=== PATIENT | female | born 1940 | race Caucasian/White ===

== ENCOUNTER 2021-12-02 09:52 | Outpatient (CLI) | payer MEDICARE, SELFPAY ==
--- OUTSIDE RECORDS SUMMARY | 2021-10-28 10:07 | XMS_ITS | Continuity of Care Document ---
:1940 Author Care Team Providers Name Role Phone SORAYA Caceres Attending Physician SORAYA Caceres Primary Care Physician Health Concerns Concerns See notes for health concerns that were reviewed. Allergies, Adverse Reactions, Alerts Allergen Type Severity Reaction Last Verified Status Updated Cortisone Allergy Moderate skin turns October 25, Yes Active red and hot 2021 Alcohol Allergy Severe THROAT October 25, Yes Active SWELLING 2021 Ramirez Allergy Moderate hives October 25, Yes Active 2021 Ragweed pollen Allergy Mild congestion, October 25, Yes Ac tive sneezing 2021 seasonal Allergy Mild sneezing September 14, No Active allergies 2020 Social History Smoking Status Status Start Date End Date Date of Observat ion Never smoked tobacco October 25, 2021 3:20pm (finding) Observation Status Observation Response Date of Response Non-smoker April 02, 2018 9:00am April 02, 2018 9:00am Additional Data Assigned Sex Female Problems Active Problems Medical Problem Onset Date Status Hyperthyroidism February 08, 2010 Resolved Hypothyroidism February 08, 2010 Active DDD (degenerative disc disease) March 04, 2012 Active Osteoarthritis March 04, 2012 Active Heart murmur Active Seasonal allergies Active Previous back surgery February 08, 2010 Resolved History of arthroscopic surgery of February 08, 2010 Resol monet shoulder H/O arthroscopic knee surgery February 08, 2010 Resolved History of left cataract Active extraction Medications Medication Status Dose Units Route Directions Qty Days Start End Ins tructions Date Date Calcium Active 500 + OR dose is Ca Carbonate-Vit 500mg/ vitamin coe D D (Calcium 500mg/Vitam in 500+D) 500 K 40mg Mg/200 Unit TAB Glucosamine-C Active 1 TAB OR Daily hondroitin-Na Cho (Glucosamine Chondroitin &) /Msm TAB Ibuprofen Active 200-4 MG PO Every 6 100 00 Hours as needed Levothyroxine Active 150 MCG PO Daily Sodium (Synthroid) 150 Mcg TAB Loratadine & Active 1 TAB PO Daily 100 100 October Pseudoephedri , ne 2021 (Claritin-D 8:59am 24 Hour) 1 Tab TAB Multiple Active 1 EA PO Daily Vitamin (Multi-Vitami n) TAB Amoxicillin Disconti 875 MG PO Twice A Day July nued , 2010 1:22pm 2:38pm Amoxicillin Disconti 875 MG PO Twice A Day Augustob e nued , r 2009 10:45am 7:27am Amoxicillin Disconti 1000 MG PO Twice A Day 13 November nued 2008 9:29am Amoxicillin & Disconti 875 MG PO Twice A Day 01 September Sep tem Pot nued , yvrose Clavulanate 2011, (Augmentin) 10:05am 2011 875 Mg/125 Mg 12:49p TAB m Amoxicillin & Disconti 1 TABLET PO Twice A Day 01 August Ju ly Pot nued , , Clavulanate 2010 2010 (Augmentin) 2:38pm 10:57a 875 Mg/125 Mg m TAB Amoxicillin & Disconti 1 TABLET PO Twice A Day September ptem Pot nued , yvrose Clavulanate 2006, (Augmentin) 11:35am 2006 875 Mg/125 Mg 10:02a TAB m Calcium Disconti 1 TABLET PO Three Times Novemb c hewable Carbonate-Vit nued A Day er coe D , (Calcium 2015 (500)/Vitamin 1:20pm D (200)) 1 Tablet TAB Calcium/Vitam Disconti 3 EA PO Daily Octobe in D nued r 2009 7:27am Celecoxib Disconti 200 MG PO Daily July (Celebrex) nued , r 200 Mg CAP 2007, 9:12am 2007 8:33am Celecoxib Disconti 200 MG PO Daily July (Celebrex) nued y , , 200 Mg CAP 2007 2007 2:37pm 9:02am Ciprofloxacin Disconti 1 TABLET PO Twice A Day Hcl nued er r , 2014 2:11pm 8:54am Clarithromyci Disconti 500 MG PO Twice A Day November ust n (Biaxin) nued , 500 Mg TAB 2008 2008 4:42pm 7:52am Diphtheria/Te Disconti 0.5 ML IM Once December tanus/Acell nued , , Pertussis 2013 2013 (Adacel) 0.5 3:15pm 3:20pm Ml INJ Epinephrine Disconti 0.3 MG IM As Needed 1 Decembe Octob e Hcl (Epipen) nued r , r 0.3 Mg INJ 2008, 11:27am 2014 8:54am Fluconazole Disconti 150 MG PO Once October nued , yvrose 2006, 1:13pm 2006 10:02a m Fluconazole Disconti 150 MG PO Once October nued , yvrose 2006, 11:27am 2006 10:02a m Glucosamine-C Disconti 1 CAP PO Three Times Mar hondroitin nued A Day er (Glucosamine , Chondroitin) 2014 1 Cap CAP 1:20pm Glucosamine-C Disconti 2 CAP PO November hondroitin nued , (Joint 2009 Support) 1 10:11a Cap CAP m Influenza Disconti 0.5 ML IM Once Februaryobe Virus Vacc nued , r 7th, Triv Types 2008 2008 A&B (Fluarix) 2:00pm 4:43pm 0.5 Ml INJ Influenza Disconti 0.5 ML IM Once Februaryobe Virus Vacc nued , r Triv Types 2007, A&B (Fluarix) 9:21am 2007 0.5 Ml INJ 10:41a m Influenza Disconti 0.5 ML IM Once 1 Novembe Novemb Virus Vaccine nued r th, er (Fluzone 2017, High-Dose (65 9:10am 2018 Yrs And 9:13am Older) 2017-) 1 Inj INJ Influenza Disconti 0.5 ML IM Once 1 Novembe Novemb Virus Vaccine nued r 2nd, er (Fluzone Pf 2010 06, [id number] 8:16am 2010 (0.5 Ml)) 0.5 9:56am Ml INJ Influenza Disconti 0.5 ML IM Once 1 Novembe Novemb Virus Vaccine nued r 7th, er Split 2016 7th, (Fluzone 8:37am 2016 High-Dose Pf 8:39am 2016 0.5 Ml) 1 Inj INJ Influenza Disconti 0.5 ML IM Once 1 Novembe Novemb Virus Vaccine nued r 16th, er Split 2015 16, (Fluzone 10:25am 2015 High-Dose (65 10:39a Yrs And m Older) 2015-) 1 Inj INJ Influenza Disconti 0.5 ML IM Once 1 Februaryobe Virus Vaccine nued th, r Split 2014, (Fluzone 9:10am 2014 High-Dose (65 10:05a Yrs And m Older) 2014-) 1 Inj INJ Influenza Disconti 0.5 ML IM Once 1 be Novemb Virus Vaccine nued r 3rd, er Split 2013 07, (Fluzone 2:00pm 2013 High-Dose (65 2:30pm Yrs And Older) 2013-) 1 Inj INJ Influenza Disconti 0.5 ML IM Once 1 be Novemb Virus Vaccine nued r th, er Split 2013 03, (Fluzone (3 8:05am 2012 Years And 12:01p Older) m [id number]) 1 Ml INJ Ketoconazole Disconti 2 % EX Twice A Day (Ketoconazole nued er ry Cream) 2 % , , CRE 2006 2007 10:11am 1:55pm Levofloxacin Disconti 750 MG PO Daily October (Levaquin) nued , yvrose 750 Mg TAB 2006, 11:27am 2006 10:02a m Loratadine Disconti 10 MG PO As Needed November (Claritin) 10 nued 8th, Mg TAB 2010 10:57a m Loratadine & Disconti 1 TAB PO Daily 100 100 September Pseudoephedri nued , , ne 2020 2021 (Claritin-D 9:45am 8:58am 24 Hour) 1 Tab TAB Loratadine & Disconti 1 TAB PO Daily July Pseudoephedri nued , , ne 2019 2020 (Claritin-D 9:35am 9:44am 24 Hour) 1 Tab TAB Loratadine & Disconti 1 TAB PO Daily October Pseudoephedri nued , , ne 2014 2019 (Claritin-D 11:09am 9:34am 24 Hour) 1 Tab TAB Loratadine & Disconti 1 TAB PO Daily 90 October Pseudoephedri nued , , ne 2014 2014 (Claritin-D 10:42am 11:09a 24 Hour) 1 m Tab TAB Loratadine & Disconti 1 TAB PO Daily October Pseudoephedri nued , 2014 (Claritin-D 10:42a 24 Hour) 1 m Tab TAB Loratadine & Disconti 1 TAB PO Octobe Pseudoephedri nued r , ne 2009 (Claritin-D 7:27am 24 Hour) 1 Tab TAB Pneumococcal Disconti 0.5 ML IM Once Polyvalent nued r , er Vaccine 2015, (Prevnar 13) 10:25am 2015 0.5 Ml INJ 10:39a m Pneumococcal Disconti 0.5 ML IM Once 04 February Octobe Polyvalent nued , r , Vaccine 2009 2009 (Pneumovax-23 7:59am 8:20am Multidose Vial) 23 Mcg/0.5 Ml INJ Valacyclovir Disconti 1 TAB PO Three Times December il Hcl (Valtrex) nued A Day , 1,000 Mg TAB 2008 2009 8:47am 10:23a m Immunizations Immunization Event Date Not Given Dose Practice Specialist Lot Vac cine Reason Number Number Informatio n Statement (VIS) Deta il COVID-19 Pfizer June 07 PFIZER-BIO [id number] 2020 COVID-19 Pfizer July 17, PFIZER-[employer] [id number] 2020 Influenza February 04 Sanofi Pasteur [id number] 2007 Inc Influenza February 10, glaxo [id number] 2008 Influenza March 09 Sanofi Pasteur [id number] 2010 Influenza March 10 Sanofi [id number] 2012 Influenza March 11 Sanofi Pasteur [id number] 2013 Influenza February 6 Sanofi [id number] 2014 Influenza March 7 SANOFI [id number] 2015 Influenza March 8 SANOFI [id number] 2016 Influenza March 9 SANOFI [id number] 2017 Prevnar Adult March 07 MERCK [id number] 2015 Pneumovax Adult February 08, 1 merck [id number] 2010 Tetanus/Diptheri August 24, 1 a 2004 Tdap December 24, 1 SANOFI [id number] (adolescent/adul 2014 t) Procedures Procedure Date Performed Status Future Lab Physical October 17, 2021 completed ASSAY THYROID STIM HORMONE October 11, 2021 completed ASSAY OF FREE THYROXINE October 11, 2021 completed Relevant Diagnostic Tests and/or Laboratory Data Laboratory Results Test Date/Time Result Interpretation Reference Result Comment Performing Site Range Random October 25, 97 60-115 [facility] Glucose [address] [facility] 9:12am [facility] [address] Blood Urea October 25, 17 7-30 [facility] Nitrogen [address] [facility] 9:12am [facility] [address] Creatinine October 25, 0.9 0.5-1.5 [facility] [address] [facility] 9:12am [facility] [address] Estimated October 25, Patient [facility] Creatinine 2021 height/weight [address] [facility] Clearance 9:12am data not [facility] [address] available Sodium Level October 25, 138 135-149 [facility] [address] [facility] 9:12am [facility] [address] Potassium October 25, 4.2 3.6-5.1 [facility] Level [address] [facility] 9:12am [facility] [address] Chloride October 25, 100 96-114 [facility] Level [address] [facility] 9:12am [facility] [address] Carbon October 25, 31 20-32 [facility] Dioxide [address] [facility] Level 9:12am [facility] [address] Calcium October 25, 9.4 8.4-10.6 [facility] Level [address] [facility] 9:12am [facility] [address] Cholesterol October 25, 184 90-199 [facility] Level [address] [facility] 9:12am [facility] [address] Triglyceride October 25, 102 40-149 [facility] s Level [address] [facility] 9:12am [facility] [address] Total October 25, 7.0 6.0-8.3 The use of [facility] Protein [address] [facility] 9:12am [place] [address] stimulant used to treat thrombocytopen ia and aplastic anemia, interferes with this measurement of total protein. A 5% bias has been observed. Albumin October 25, 4.2 3.3-5.0 [facility] [address] [facility] 9:12am [facility] [address] Total October 25, 1.7 0.1-1.5 [facility] Bilirubin [address] [facility] 9:12am [facility] [address] Aspartate October 25, 29 12-35 [facility] Amino Transf 2021 1999 [facility] (AST/SGOT) 9:12am [facility] [address] Alanine October 25, 15 4-35 [facility] Aminotransfe 2021 1999 [facility] rase 9:12am [facility] [address] (ALT/SGPT) Alkaline October 25, 53 40-150 [facility] Phosphatase 2021 [address] [facility] 9:12am [facility] [address] LDL October 25, 104 <100 [facility] Cholesterol 2021 [address] [facility] 9:12am [facility] [address] HDL October 25, 60 >=50 [facility] Cholesterol 2021 [address] [facility] 9:12am [facility] [address] Thyroid October 11, < 0.015 0.270-4.20 Patients [facility] Stimulating 2021 0 taking a high [address] [facility] Hormone 8:46am dose [facility] [address] (TSH) (>5mg/day) of Biotin supplement (vitamin B7) will demonstrate a >10% negative bias for TSH testing. Free October 11, 2.27 0.70-1.85 [facility] Thyroxine [address] [facility] 8:46am [facility] [address] Vitamin D October 25, 58 30-80 Deficient..... [facility] 25-Hydroxy 2021 .......less 1999 [facility] 9:12am than 20 [facility] [address] ng/mLInsuffici ent..........2 0-29 ng/mLSufficien t............. .30-100 ng/mLPotential Toxicity....gr eater than 100 ng/mL Vitamin B12 October 25, 411 243-894 [facility] Level [address] [facility] 9:12am [facility] [address] White Blood October 25, 5.0 4.5-11.0 [facility] [place] [facility] [address] 9:12am [facility] [address] Red Blood October 25, 3.71 4.00-5.20 [facility] Count [address] 9:12am [facility] [address] Hemoglobin October 25, 13.6 12.0-16.0 [facility] [place] [address] 9:12am [facility] [address] Hematocrit October 25, 38.0 33-51 [facility] [place] [address] 9:12am [facility] [address] Mean October 25, 102 80-100 [facility] Corpuscular [address] Volume 9:12am [facility] [address] Mean October 25, 37 26-34 [facility] Corpuscular [address] Hemoglobin 9:12am [facility] [address] Mean October 25, 36 32-36 [facility] Corpuscular [address] Hemoglobin 9:12am [facility] [address] Concent Platelet October 25, 240 140-440 [facility] [address] 9:12am [facility] [address] Vital Signs Vital Reading Result Reference Range Collection Date/ Time Height 64.500 [in_i] October 25, 2021 8:44am Height 163.83 cm October 25, 2021 8:44am Weight 173.00 [lb_av] October 25, 2021 8:44am Weight 78.526208 kg October 25, 2021 8:44am Body Temperature 99.1 [degF] October 25, 2021 8:44am Body Temperature 37.28 Nicole October 25, 2021 8:44am BP Systolic 128 mm[Hg] October 25, 2021 8:44am BP Diastolic 62 mm[Hg] October 25, 2021 8:44am Heart Rate 90 /min October 25, 2021 8:44am Respiratory rate 12 /min October 25, 2021 8:44am Body surface area 1.85 m2 October 25 8:44am BMI (Body Mass Index) 29.3 kg/m2 October 25, 2021 8:44am Advance Directives Advance Directive Response Recorded Date/Time Does Pt have Health Care Yes March 04 2:26pm Directive? Has patient completed a N - has packet October 25, 2021 3:20pm Health Care Directive? Insurance Providers Guarantor Adriana Schmitz Address [address] [address] [address] Contact Info. Home Phone: Payer Policy Id Coverage Id Subscriber's Subscriber Id Effective E xpiration Name Date Date Blue [id number] [place] Medicare Ppo [id number] Adriana Pedroza [id number] Encounters Encounter Location(s) Arrival/Admit Date Discharge/Depart Date Provider(s) Registered [place] October 25, 2021 CaceresVirginia landry [facility] 9:05am PA Registered [facility] October 25, 2021 CaceresVirginia landry Practice 9:00am PA Office Visit [place] October 25, [address] [facility] 9:00am PA Registered [place] October 11, 2021 [facility] 1:38pm MD Office Visit [place] October 11, 2021 [facility] 8:45am Recent Diagnosis Onset Date Seasonal allergies Heart murmur Annual physical exam Assessments Followup as needed. EP level 4 Plan of Treatment Future Tests Future scheduled test information is unavailable Pending Tests Pending diagnostic test information is unavailable Future Visits Future appointment information is unavailable Referrals to Other Providers Reason for Referral Referral Start Provider Provider Contact Pr ovider Address Date Information Scheduled with [facility] JESS on Sunday, ie, NH+[facility] July 07 at 9am. Rehab Scheduled with Miguel Kumar Work Phone: [phone] [employer] [employer] [address] on Sunday, [facility] [address] August 04, at 10am in [place]. Appointment made Bret Taylor for 04/09/08 at 2pm. Scheduled with Services-[facility] JOHAN-ASHLEE on Sunday, ield, NH+C July 07 at 9am. Rehab Scheduled with Miguel Kumar Work Phone: [phone] on Sunday, [facility] [address] August 04, at 10am in [facility]. Appointment made Bret Taylor for 04/09/08 at 2pm. Future Procedures Procedure Name Scheduled Date STRESS Treadmill Echo XOCHILT Bilat Mammo Scrn XOCHILT Bilat Mammo Scrn Future Medications Future medication information is unavailable Patient Instructions Patient instructions are unavailable
--- NOTE | 2021-12-02 10:15 | CRLHL7_ITS ---
For Patients: As a result of the Century Cures Act, medical imaging exams and procedure reports are released immediately into your electronic medical record. You may view this report before your referring provider. If you have questions, please contact your health care provider. BILATERAL MAMMOGRAM WITH COMPUTER-AIDED DETECTION TECHNIQUE: CC and MLO views were obtained. These mammographic images have been obtained using full-field digital technique. These mammographic images were interpreted with the benefit of computer-aided detection. COMPARISON FILM: 09/15/20, 03/26/17, 03/23/16 FINDINGS: There are scattered areas of fibroglandular density IMPRESSION: There is no radiographic evidence for malignancy. ASSESSMENT: BI-RADS Category 1: Negative RECOMMENDATION: Routine screening mammogram in 1 year. A lay language report of this examination will be provided to the patient. Amandeep Oconnor M.D. Diagnostic Radiologist [email or web address] BÁRBARA/Dictated by: Amandeep Oconnor MD @ 12/05/2021 9:13:00 AM (Electronically Signed)
== END 2021-12-02 09:53 | disposition home or self-care (01) ==
LOC: MAMMO 09:53
PROVIDERS: PCP Physician Assistant Medical; Visit Provider Physician Assistant Medical
DX: Z12.31 Encounter for screening mammogram for malignant neoplasm of breast (principal); R92.2 Inconclusive mammogram
CPT/HCPCS: 77067

== ENCOUNTER 2022-10-03 14:03 | Outpatient (REF) | payer MEDICARE, SELFPAY ==
[2022-10-03 15:08] LABS: Free T4 Free Thyroxine* 2.61 ng/dL (0.70-1.85)
[2022-10-03 15:44] LABS: Thyroid Stimulating Hormone* < 0.015 uIU/mL (0.270-4.20)
== END 2022-10-03 14:04 | disposition home or self-care (01) ==
LOC: NPINS 14:03
PROVIDERS: PCP Physician Assistant Medical; Visit Provider Internal Medicine Endocrinology, Diabetes & Metabolism
DX: Z00.00 Encounter for general adult medical examination without abnormal findings (principal); E03.9 Hypothyroidism, unspecified; E05.90 Thyrotoxicosis, unspecified without thyrotoxic crisis or storm; J30.2 Other seasonal allergic rhinitis
CPT/HCPCS: 80053; 80061; 82607; 84439; 84443

== ENCOUNTER 2022-10-04 13:22 | Outpatient (CLI) | payer MEDICARE, SELFPAY ==
--- NOTE | 2022-10-04 13:30 | CRLHL7_ITS ---
For Patients: As a result of the Century Cures Act, medical imaging exams and procedure reports are released immediately into your electronic medical record. You may view this report before your referring provider. If you have questions, please contact your health care provider. DXA BONE MINERAL DENSITY STUDY Reason for exam: Postmenopausal status. Current height (in): 63. Weight (lb): 158. Menopause age: 53. Ethnicity: White. 1. Have you had a previous hip or vertebral fracture? No. 2. Have you had any fractures during your adult life which did not result from significant trauma (e.g., auto accident)? No. 3. Did either of your parents have a hip fracture? No. 4. Do you smoke? No. 5. Have you ever taken Glucocorticoids? No. 6. Do you have rheumatoid arthritis? Yes. 7. Do you have secondary osteoporosis? No. 8. Do you drink 3 or more alcoholic drinks per day? No. 9. Are you being treated for osteoporosis? No. 10. Have you ever taken any of the following medications: Actonel, Evista, Fosamax, Miacalcin, Reclast, Boniva, Forteo, HRT (i.e., estrogen/hormone therapy), Protelos, Prolia, Vitamin D, Calcium, other ??? please specify. ANSWER: Yes, vitamin D and calcium. 11. Do you have any of the following medical conditions: Anorexia or bulimia, asthma or emphysema, end stage renal disease, hyperparathyroidism, any seizure disorders, cancer, inflammatory bowel diseases, hysterectomy, other ??? please specify. ANSWER: No. 12. What was your maximum height (inches)? 66.5. 13. Do you perform weight bearing exercise regularly? No. 14. Do you regularly consume dairy products? Yes. 15. Do you drink caffeinated beverages? Yes. If female: 16. At what age did your period start? 12. 17. Are you premenopausal? No. 18. How many full-term pregnancies have you had? 5. 19. Have you ever missed your period for more than 6 months in a row (not including or menopause)? No. TECHNIQUE: Bone mineral density study was performed using the [employer]. FINDINGS: The results of the study expressed as bone mineral density (BMD) are as follows: Lumbar spine L1 to L3: BMD: 1.037 g/cm2. T-score: 0.2. Z-score: 2.8 Neck Left: BMD: 0.847 g/cm2. T-score: 0.0. Z-score: 2.3 Right: BMD: 0.821 g/cm2. T-score: -0.3. Z-score: 2.0 Total Left: BMD: 0.967 g/cm2. T-score: 0.2. Z-score: 2.3 Right: BMD: 1.016 g/cm2. T-score: 0.6. Z-score: 2.7 IMPRESSION: Normal bone density. *Comparison exams done prior to 10/2019 were performed on different unit, [employer]. COMPARISON: Compared with scan of 09/15/2020, the bone mineral density has increased by 1.7 percent at the spine and decreased by 2.3 percent at the hip. Amandeep Oconnor M.D. Diagnostic Radiologist [email or web address] CHARISSE/jerrod elder/Dictated by: Amandeep Oconnor MD @ 10/04/2022 2:54:00 PM (Electronically Signed)
== END 2022-10-04 13:23 | disposition home or self-care (01) ==
LOC: RAD 13:25
PROVIDERS: PCP Physician Assistant Medical; Visit Provider Physician Assistant Medical
DX: Z78.0 Asymptomatic menopausal state (principal)
CPT/HCPCS: 77080

== ENCOUNTER 2023-01-30 10:43 | Outpatient (CLI) | payer MEDICARE, SELFPAY ==
--- NOTE | 2023-01-30 11:30 | CRLHL7_ITS ---
For Patients: As a result of the Century Cures Act, medical imaging exams and procedure reports are released immediately into your electronic medical record. You may view this report before your referring provider. If you have questions, please contact your health care provider. BILATERAL SCREENING MAMMOGRAM WITH COMPUTER-AIDED DETECTION TECHNIQUE: CC and MLO views were obtained. These mammographic images have been obtained using full-field digital technique. These mammographic images were interpreted with the benefit of computer-aided detection. COMPARISON FILM: 12/02/21, 09/15/20, 03/26/17. FINDINGS: There are scattered areas of fibroglandular density IMPRESSION: There is no radiographic evidence for malignancy. ASSESSMENT: BI-RADS Category 1: Negative RECOMMENDATION: Routine screening mammogram in 1 year. A lay language report of this examination will be provided to the patient. Amandeep Oconnor M.D. Diagnostic Radiologist [email or web address] Transcribed: 2:39 pm DW/Dictated by: Amandeep Oconnor MD @ 01/30/2023 12:38:00 PM (Electronically Signed)
== END 2023-01-30 10:44 | disposition home or self-care (01) ==
LOC: MAMMO 10:45
PROVIDERS: PCP Physician Assistant Medical; Visit Provider Physician Assistant Medical
DX: Z12.31 Encounter for screening mammogram for malignant neoplasm of breast (principal)
CPT/HCPCS: 77067

== ENCOUNTER 2023-10-10 14:39 | Outpatient (REF) | payer MEDICARE, SELFPAY ==
[2023-10-10 17:38] LABS: Free T4 Free Thyroxine* 2.21 ng/dL (0.70-1.85)
[2023-10-10 18:00] LABS: Thyroid Stimulating Hormone* < 0.015 uIU/mL (0.270-4.20)
== END 2023-10-10 14:40 | disposition home or self-care (01) ==
LOC: NPINS 14:39
PROVIDERS: PCP Physician Assistant Medical; Visit Provider Physician Assistant Medical
DX: E03.9 Hypothyroidism, unspecified (principal)
CPT/HCPCS: 84439; 84443

== ENCOUNTER 2024-08-13 11:02 | Outpatient (CLI) | payer MEDICARE, SELFPAY | END 2024-08-13 11:03 | disposition home or self-care (01) | PROVIDERS: PCP Physician Assistant Medical; Visit Provider Physician Assistant Medical | DX: E03.9 Hypothyroidism, unspecified (principal) | CPT/HCPCS: 80053; 80061; 84439; 84443 ==

== ENCOUNTER 2024-11-26 13:59 | Outpatient (CLI) | payer MEDICARE, SELFPAY ==
--- NOTE | 2024-11-26 14:30 | CRLHL7_ITS ---
For Patients: As a result of the Century Cures Act, medical imaging exams and procedure reports are released immediately into your electronic medical record. You may view this report before your referring provider. If you have questions, please contact your health care provider. DXA BONE MINERAL DENSITY STUDY Reason for exam: Asymptomatic menopausal state. Current height (in): 63. Weight (lb): 156. Menopause age: 53. Ethnicity: White. 1. Have you had a previous hip or vertebral fracture? No. 2. Have you had any fractures during your adult life which did not result from significant trauma (e.g., auto accident)? No. 3. Did either of your parents have a hip fracture? No. 4. Do you smoke? No. 5. Have you ever taken Glucocorticoids? No. 6. Do you have rheumatoid arthritis? Yes. 7. Do you have secondary osteoporosis? No. 8. Do you drink 3 or more alcoholic drinks per day? No. 9. Are you being treated for osteoporosis? No. 10. Have you ever taken any of the following medications: Actonel, Evista, Fosamax, Miacalcin, Reclast, Boniva, Forteo, HRT (i.e. estrogen/hormone therapy), Protelos, Prolia, Vitamin D, Calcium, other ??? please specify. ANSWER: Yes, Vitamin D and Calcium. 11. Do you have any of the following medical conditions: Anorexia or bulimia, asthma or emphysema, end stage renal disease, hyperparathyroidism, any seizure disorders, cancer, inflammatory bowel diseases, hysterectomy, other ??? please specify. ANSWER: No. 12. What was your maximum height (inches)? 66.5. 13. Do you perform weight bearing exercise regularly? No. 14. Do you regularly consume dairy products? Yes. 15. Do you drink caffeinated beverages? Yes. 16. At what age did your period start? 12. 17. Are you premenopausal? No. 18. How many full term pregnancies have you had? 5. 19. Have you ever missed your period for more than 6 months in a row (not including or menopause)? No. TECHNIQUE: Bone mineral density study was performed using the [employer]. FINDINGS: The results of the study expressed as bone mineral density (BMD) are as follows: Lumbar spine L1 to L3: BMD: 1.052 g/cm2. T-score: 0.3. Z-score: 3.0. Neck Left: BMD: 0.862 g/cm2. T-score: 0.1 . Z-score: 2.5. Right: BMD: 0.849 g/cm2. T-score: 0.0 . Z-score: 2.4. Total Left: BMD: 1.092 g/cm2. T-score: 1.2. Z-score: 3.4. Right: BMD: 1.066 g/cm2. T-score: 1.0. Z-score: 3.2. IMPRESSION: Normal bone density. *Comparison exams done prior to 10/2019 were performed on different unit, [employer]. COMPARISON: Compared with scan of 10/04/2022, the bone mineral density has increased by 1.4 percent at the spine and increased by 8.8 percent at the hip. Compared with scan of 09/15/2020, the bone mineral density has increased by 1.7 percent at the spine and decreased by 2.3 percent at the hip. Vanessa Gunderson M.D. Diagnostic Radiologist [email or web address] AZRA/acpo SP/Dictated by: Vanessa Gunderson MD @ 12/01/2024 7:10:00 AM (Electronically Signed)
--- NOTE | 2024-11-26 15:00 | CRLHL7_ITS ---
For Patients: As a result of the Century Cures Act, medical imaging exams and procedure reports are released immediately into your electronic medical record. You may view this report before your referring provider. If you have questions, please contact your health care provider. INDICATION: BILATERAL SCREENING MAMMOGRAM, ASYMPTOMATIC 84 Y/O FEMALE COMPARISON: 01/30/2023, 12/02/2021, 09/15/2020 TECHNIQUE: Digital mammogram in CC and MLO projections including computer-aided detection (CAD) and tomosynthesis. BREAST COMPOSITION: There are scattered areas of fibroglandular density. FINDINGS: No suspicious findings. ASSESSMENT: BI-RADS 1 Negative RECOMMENDATION: Annual screening mammogram. A lay language report of this examination will be provided to the patient. Dictated by: Shahrzad Streeter MD @ 11/29/2024 14:18:24 (Electronically Signed)
== END 2024-11-26 14:00 | disposition home or self-care (01) ==
LOC: RAD 13:59
PROVIDERS: PCP Physician Assistant Medical; Visit Provider Physician Assistant Medical
DX: Z12.31 Encounter for screening mammogram for malignant neoplasm of breast (principal); Z78.0 Asymptomatic menopausal state
CPT/HCPCS: 77063; 77067; 77080